=== PATIENT | female | born 2000 | race Caucasian/White ===

== ENCOUNTER 2022-03-04 15:16 | Emergency (ER) | payer OTHER ==
--- NOTE | 2022-03-04 15:54 | ER ---
Nurse's Notes [facility] Name: Mary De Leon Age: 21 yrs Sex: Female : 2000 Arrival Date: 03/04/2022 Time: 15:29 Bed Waiting Private MD: Diagnosis: ED Course: 03/04 15:29 Patient arrived in ED. am2 15:31 [facility] jh7 15:31 Deonte Wayne DO is Attending Physician. jh7 Administered Medications: No medications were administered Outcome: 15:53 Patient left the ED. ld1 Signatures: Jenny Bee am2 Tamiko Case RN RN ld1 Alexandra Albarran FNP FNP [facility]
== END 2022-03-04 15:53 | disposition left against medical advice (07) ==
LOC: ER 15:16
DX: Z02.9 Encounter for administrative examinations, unspecified (principal)